=== PATIENT | female | born 1960 | race Two or more races ===

== ENCOUNTER 2020-08-16 11:38 | Outpatient (CLI) | payer OTHER | END 2020-08-16 11:39 | disposition home or self-care (01) | LOC: SONOGRAMA 11:38 | PROVIDERS: ATTEND Pathology Anatomic Pathology & Clinical Pathology | DX: E04.1 Nontoxic single thyroid nodule (principal) ==

== ENCOUNTER 2024-10-27 09:47 | Outpatient (CLI) | payer OTHER | END 2024-10-27 09:49 | disposition home or self-care (01) | LOC: SONOGRAMA 09:47 | PROVIDERS: ATTEND Pathology Anatomic Pathology | DX: D34 Benign neoplasm of thyroid gland (principal); E06.3 Autoimmune thyroiditis; E04.1 Nontoxic single thyroid nodule ==